=== PATIENT | female | born 1945 | race Caucasian/White ===

== ENCOUNTER 2019-04-13 12:07 | Emergency (ER) | payer BC ==
[~2019-04-13] VITALS: Ht 165.1 cm; Wt 77.1 kg
[2019-04-13 13:17] LABS: BILIRUBIN,URINE NEGATIVE (NEG); CLARITY,URINE CLEAR; COLOR,URINE YELLOW; NITRITE,URINE NEGATIVE (NEG); PROTEIN,URINE NEGATIVE (NEG-TRACE); UROBILINOGEN,URINE 0.2 mg/dL (0.2 mg/dL)
[2019-04-13 13:25] LABS: SQUAMOUS EPITHELIAL CELL,UR FEW /LPF
[2019-04-13 13:26] LABS: BACTERIA,URINE 0 /HPF (0-FEW); RBC,URINE 0 /HPF (0-2); WBC,URINE OCC /HPF (0-4)
--- NOTE | 2019-04-13 13:36 | PHYS DOC ---
Past Medical History Past Medical History: Hypertension, Other Additional Past Medical Histor: ALZHEIMER'S Past Surgical History: Knee Replacement Smoking: Cigarettes (The patient is a nonsmoker.) Alcohol Use: None Drug Use: None Adult General Chief Complaint Chief Complaint: FLANK PAIN HPI HPI Patient is a 74-year-old female who arrives in the emergency department via EMS, along with her family. The patient's family reported that the patient awakened this morning complaining of some lower back pain and bilateral flank pain, which is unusual for her. She agreed to come to the emergency department for evaluation which is also unusual for her. She has not had any vomiting or diarrhea and denies any dysuria. She has not had any fevers or chills. She denies any numbness, or weakness. She is somewhat of a limited historian, owing to underlying Alzheimer's dementia. There are no alleviating or exacerbating factors to her symptoms. The patient denies being in any pain now, and states she is feeling better since arrival in the emergency department. She appears comfortable without any distress. Review of Systems Review of Systems Review of systems somewhat limited secondary to dementia. Constitutional: Denies fever or chills [] Eyes: Denies change in visual acuity, redness, or eye pain [] HENT: Denies nasal congestion or sore throat [] Respiratory: Denies cough or shortness of breath [] Cardiovascular: The patient denies any shortness of breath, chest pain, palpitations, or orthopnea[] GI: Denies abdominal pain, nausea, vomiting, bloody stools or diarrhea [] : Denies dysuria or hematuria [] Musculoskeletal: Denies current back pain or joint pain [] Integument: Denies rash or skin lesions [] Neurologic: Denies headache, focal weakness or sensory changes [] Endocrine: Denies polyuria or polydipsia [] All other systems were reviewed and found to be within normal limits, except as documented in this note. Allergies Allergies Allergies Coded Allergies Type Severity Reaction Last Updated Verified No Known Drug Allergies 04/13/19 No Physical Exam Physical Exam PHYSICAL EXAM: CONSTITUTIONAL: Well developed, well nourished HEAD: normocephalic, atraumatic EENT: PERRL, EOMI. Conjunctivae normal color, sclerae non-icteric; moist mucous membranes. NECK: Supple, non-tender; no meningismus. LUNGS: Lungs CTA, breathing even and unlabored. Normal air movement. HEART: Regular rate and rhythm, no murmur CHEST: No deformity; non-tender ABDOMEN: The abdomen is soft, and non-tender, no masses or bruits. EXTREM: Normal ROM; no deformity, no calf tenderness. Normal pulses palpable in all extremities. There is no pedal edema. SKIN: No rash; no diaphoresis NEURO: Alert; normal speech, impaired cognition consistent with underlying dementia; CN's grossly intact; strength grossly intact without focal deficit. BACK: No CVA TTP. Current Patient Data Vital Signs Vital Signs Date Time Temp Pulse Resp B/P (MAP) Pulse Ox O2 Delivery O2 Flow Rate FiO2 04/13/19 13:00 98.1 69 18 162/72 (102) 97 Room Air 98.1 Lab Values Laboratory Tests Test 04/13/19 12:55 04/13/19 13:40 Urine Collection Type Void Urine Color Yellow Urine Clarity Clear Urine pH 6.0 Urine Specific [place] <=1.005 Urine Protein Negative mg/dL (NEG-TRACE) Urine Glucose (UA) Negative mg/dL (NEG) Urine Ketones (Stick) Negative mg/dL (NEG) Urine Blood Negative (NEG) Urine Nitrite Negative (NEG) Urine Bilirubin Negative (NEG) Urine Urobilinogen Dipstick 0.2 mg/dL (0.2 mg/dL) Urine Leukocyte Esterase Trace (NEG) Urine RBC 0 /HPF (0-2) Urine WBC Occ /HPF (0-4) Urine Squamous Epithelial Cells Few /LPF Urine Bacteria 0 /HPF (0-FEW) White Blood Count 8.8 x10^3/uL (4.0-11.0) Red Blood Count 5.33 x10^6/uL (3.50-5.40) Hemoglobin 13.3 g/dL (12.0-15.5) Hematocrit 40.2 % (36.0-47.0) Mean Corpuscular Volume 76 fL (79-100) L Mean Corpuscular Hemoglobin 25 pg (25-35) Mean Corpuscular Hemoglobin Concent 33 g/dL (31-37) Red Cell Distribution Width 14.7 % (11.5-14.5) H Platelet Count 301 x10^3/uL (140-400) Neutrophils (%) (Auto) 69 % (31-73) Lymphocytes (%) (Auto) 24 % (24-48) Monocytes (%) (Auto) 6 % (0-9) Eosinophils (%) (Auto) 1 % (0-3) Basophils (%) (Auto) 1 % (0-3) Neutrophils # (Auto) 6.1 x10^3/uL (1.8-7.7) Lymphocytes # (Auto) 2.1 x10^3/uL (1.0-4.8) Monocytes # (Auto) 0.5 x10^3/uL (0.0-1.1) Eosinophils # (Auto) 0.1 x10^3/uL (0.0-0.7) Basophils # (Auto) 0.1 x10^3/uL (0.0-0.2) Sodium Level 140 mmol/L (136-145) Potassium Level 3.6 mmol/L (3.5-5.1) Chloride Level 102 mmol/L (98-107) Carbon Dioxide Level 30 mmol/L (21-32) Anion Gap 8 (6-14) Blood Urea Nitrogen 15 mg/dL (7-20) Creatinine 0.8 mg/dL (0.6-1.0) Estimated GFR (Cockcroft-Gault) 70.5 BUN/Creatinine Ratio 19 (6-20) Glucose Level 105 mg/dL (70-99) H Calcium Level 9.4 mg/dL (8.5-10.1) Total Bilirubin 0.3 mg/dL (0.2-1.0) Aspartate Amino Transferase (AST) 17 U/L (15-37) Alanine Aminotransferase (ALT) 22 U/L (14-59) Alkaline Phosphatase 96 U/L (46-116) Troponin I Quantitative < 0.017 ng/mL (0.000-0.055) Total Protein 7.4 g/dL (6.4-8.2) Albumin 3.4 g/dL (3.4-5.0) Albumin/Globulin Ratio 0.9 (1.0-1.7) L Lipase 401 U/L (73-393) H Laboratory Tests 04/13/19 13:40 Laboratory Tests 04/13/19 13:40 EKG EKG []Normal sinus rhythm with a normal rate, normal axis, normal intervals, there are no acute ischemic ST/T changes. Radiology/Procedures Radiology/Procedures []PROCEDURE: CT ABDOMEN PELVIS WO CONTRAST Exam performed: CT abdomen and pelvis without contrast HISTORY: Bilateral flank pain. DATE OF SERVICE: 04/13/2019. COMPARISON: None available TECHNIQUE: Contiguous helical acquisitions are obtained through the abdomen and pelvis without IV contrast. Sagittal and coronal reformatted images are obtained and reviewed. FINDINGS: Lung bases are clear. Visualized heart is normal. Small hiatal hernia. Unopacified liver, gallbladder, spleen and pancreas appear normal. Both adrenal glands and bilateral kidneys are normal in size. Tiny 2 mm nonobstructing right superior renal pole calculus. Ureters are nondilated. There is aortic calcification without aneurysm. Small and large bowel loops are nondilated and unremarkable. Sigmoid diverticulosis. Urinary bladder is distended. The uterus is retroverted. No adnexal masses seen. Spondylotic changes and multilevel disc degenerative changes involving the lumbar spine. IMPRESSION: Nonobstructing 2 mm right superior renal pole calculus. Sigmoid diverticulosis without acute diverticulitis. Small hiatal hernia. Course & Med Decision Making Course & Med Decision Making Pertinent Labs and Imaging studies reviewed. (See chart for details) [] 3:00 PM: The patient's condition remains stable. Discussed test results with the patient and her family, the need for close follow-up, and return precautions in detail. Dragon Disclaimer Dragon Disclaimer This electronic medical record was generated, in whole or in part, using a voice recognition dictation system. Departure Departure Impression: Primary Impression: Back pain Additional Impression: Dementia Disposition: 01 HOME, SELF-CARE Condition: STABLE Referrals: TARA DANGELO MD (PCP) Patient Instructions: Back Pain, Adult, Flank Pain Additional Instructions: Ibuprofen 400 mg every 6 hours may help improve your symptoms. Applying a heating pad to the affected area may help improve your symptoms. The prescribed medications may cause drowsiness-use caution while taking. Scripts Acetaminophen With Codeine (TYLENOL WITH CODEINE #3 TABLET) 1 Each Tablet 1 TAB PO PRN Q6HRS PRN for PAIN, #15 TAB Prov: OTILIO SEARS MD 04/13/19 Problem Qualifiers OTILIO SEARS MD Apr 13, 2019 13:36
[2019-04-13 13:49] LABS: BASO # 0.1 x10^3/uL (0.0-0.2); BASO % 1 % (0-3); EOS # 0.1 x10^3/uL (0.0-0.7); EOS % 1 % (0-3); HEMATOCRIT 40.2 % (36.0-47.0); HEMOGLOBIN 13.3 g/dL (12.0-15.5); LYMPH # 2.1 x10^3/uL (1.0-4.8); LYMPH % 24 % (24-48); MEAN CORPUSCULAR HEMOGLOBIN 25 pg (25-35); MEAN CORPUSCULAR HGB CONC 33 g/dL (31-37); MEAN CORPUSCULAR VOLUME 76 fL (79-100); MONO # 0.5 x10^3/uL (0.0-1.1); MONO % 6 % (0-9); NEUT # 6.1 x10^3/uL (1.8-7.7); NEUT % 69 % (31-73); PLATELET COUNT 301 x10^3/uL (140-400); RED BLOOD COUNT 5.33 x10^6/uL (3.50-5.40); RED CELL DISTRIBUTION WIDTH 14.7 % (11.5-14.5); WHITE BLOOD COUNT 8.8 x10^3/uL (4.0-11.0)
[2019-04-13 14:00] VITALS: BP 138/78
[2019-04-13 14:01] LABS: CALCIUM 9.4 mg/dL (8.5-10.1); CREATININE 0.8 mg/dL (0.6-1.0); GFR 70.5; POTASSIUM 3.6 mmol/L (3.5-5.1)
[2019-04-13 14:07] LABS: ALBUMIN 3.4 g/dL (3.4-5.0); ALBUMIN/GLOBULIN RATIO 0.9 (1.0-1.7); TOTAL BILIRUBIN 0.3 mg/dL (0.2-1.0); TOTAL PROTEIN 7.4 g/dL (6.4-8.2)
--- NOTE | 2019-04-13 14:37 | RAD ---
Exam performed: CT abdomen and pelvis without contrast HISTORY: Bilateral flank pain. DATE OF SERVICE: 04/13/2019. COMPARISON: None available TECHNIQUE: Contiguous helical acquisitions are obtained through the abdomen and pelvis without IV contrast. Sagittal and coronal reformatted images are obtained and reviewed. FINDINGS: Lung bases are clear. Visualized heart is normal. Small hiatal hernia. Unopacified liver, gallbladder, spleen and pancreas appear normal. Both adrenal glands and bilateral kidneys are normal in size. Tiny 2 mm nonobstructing right superior renal pole calculus. Ureters are nondilated. There is aortic calcification without aneurysm. Small and large bowel loops are nondilated and unremarkable. Sigmoid diverticulosis. Urinary bladder is distended. The uterus is retroverted. No adnexal masses seen. Spondylotic changes and multilevel disc degenerative changes involving the lumbar spine. IMPRESSION: Nonobstructing 2 mm right superior renal pole calculus. Sigmoid diverticulosis without acute diverticulitis. Small hiatal hernia. PQRS Compliance Statement: One or more of the following individualized dose reduction techniques were utilized for this examination: 1. Automated exposure control 2. Adjustment of the mA and/or kV according to patient size 3. Use of iterative reconstruction technique Electronically signed by: Betsy Russell MD (04/13/2019 2:34 PM) [facility]
[2019-04-13] MEDS ORDERED: ACET-704 PO (15:03)
[2019-04-13] MEDS ORDERED: HYDROcodone/APAP 5/325MG 1 TAB TABLET PO ONE (15:15)
--- NOTE | 2019-04-14 06:30 | EKG ---
[facility] [address] [place] [id number] Test Date: 2019-04-13 Test Time: 13:43:52 Pat Name: TANK LOBATO Department: Room: Gender: F Clinical Pharmacy Coordinator: : 1945 Requested By: OTILIO SEARS Order Number: [id number] Reading MD: Measurements Intervals Bud Rate: 60 P: 49 ND: 150 QRS: 26 QRSD: 80 T: 21 QT: 428 QTc: 428 Interpretive Statements SINUS RHYTHM NO SPECIFIC ECG ABNORMALITIES RI6.01 No previous ECG available for comparison
== END 2019-04-13 15:27 | disposition home or self-care (01) ==
LOC: ER 12:07
DX: M54.5 Low back pain (principal); F03.90 Unspecified dementia, unspecified severity, without behavioral disturbance, psychotic disturbance, mood disturbance, and anxiety; I10 Essential (primary) hypertension; Z96.659 Presence of unspecified artificial knee joint
CPT/HCPCS: 36415; 74176; 80053; 81001; 83690; 84484; 85025; 87086; 93005; 99285-25

== ENCOUNTER → 2019-05-30 | Outpatient (CLI) | payer BC ==
[~2019-05-30] MED LIST: ACET-704 PO
--- NOTE | 2019-05-30 12:07 | KCIC ---
CT HEAD WITHOUT CONTRAST 05/30/2019 11:00 AM Indication: Late onset Alzheimer's dementia Comparison: None Procedure: Multidetector CT imaging of the head was performed without the administration of contrast. Findings: There is no evidence of acute intracranial hemorrhage. There is no evidence of acute territorial infarction. Please note that CT is limited for evaluation of acute ischemia. No mass effect or midline shift is identified . The ventricles and basilar cisterns have an appropriate appearance. No abnormal extra-axial fluid collections are seen. No acute osseous changes are identified. Impression: No evidence of acute intracranial abnormality CT DOSING PQRS STATEMENT: One or more of the following individualized dose reduction techniques were utilized for this examination: 1. Automated exposure control 2. Adjustment of the mA and/or kV according to patient size 3. Use of iterative reconstruction technique Electronically signed by: Nir Ag MD (05/30/2019 12:04 PM) [id number]
== END | disposition home or self-care (01) ==
LOC: KCIC CT 10:15
PROVIDERS: ATTEND Psychiatry & Neurology Neurology with Special Qualifications in Child Neurology
DX: G30.1 Alzheimer's disease with late onset (principal)
CPT/HCPCS: 70450